=== PATIENT | female | born 1970 | race Caucasian/White ===

== ENCOUNTER 2023-08-26 17:02 | Emergency (ER) | payer OTHER ==
[~2023-08-26] VITALS: Ht 154.9 cm; Wt 68.0 kg
[2023-08-26 17:15] VITALS: O2SAT 100
[2023-08-26] MEDS ORDERED: NAPR220C61 MT (18:57)
[2023-08-26 19:25] VITALS: BP 134/78; PULSE 87; RESP 16; TEMP 98.2
== END 2023-08-26 19:28 | disposition home or self-care (01) ==
LOC: ER 17:02
DX: M25.511 Pain in right shoulder (principal); J45.909 Unspecified asthma, uncomplicated; Z98.890 Other specified postprocedural states
CPT/HCPCS: 73030; 99283

== ENCOUNTER 2023-09-14 10:27 | Emergency (ER) | payer OTHER ==
[~2023-09-14] VITALS: Ht 154.9 cm; Wt 70.0 kg
[~2023-09-14 10:27] MED LIST: NAPR220C61 MT
[2023-09-14 10:29] VITALS: O2SAT 100
[2023-09-14] MEDS ORDERED: BENZ100C86 MT (12:58)
[2023-09-14 13:30] VITALS: BP 130/87; PULSE 85; RESP 20; TEMP 98.7
== END 2023-09-14 13:35 | disposition home or self-care (01) ==
LOC: ER 10:27
DX: J06.9 Acute upper respiratory infection, unspecified (principal); J45.909 Unspecified asthma, uncomplicated; Z98.890 Other specified postprocedural states
CPT/HCPCS: 71045; 99283

== ENCOUNTER 2023-09-20 15:07 | Emergency (ER) | payer OTHER ==
[~2023-09-20] VITALS: Ht 154.9 cm; Wt 60.0 kg
[~2023-09-20 15:07] MED LIST changes: +BENZ100C86 MT
[2023-09-20 15:54] VITALS: BP 111/75; PULSE 96; RESP 18; TEMP 98.2; O2SAT 96
[2023-09-20 16:31] LABS: BASOPHILS % 0.7 % (0.0-2.0); DIFFERENTIAL COMMENT 0; EOSINOPHILS % 0.6 % (0.0-5.0); HEMATOCRIT. 39.7 % (36.0-48.0); HEMOGLOBIN. 12.7 g/dL (12.0-16.0); LYMPHOCYTES % 12.5 % (20.0-50.0); MEAN CORPUSCULAR HEMOGLOBIN 24.1 pg (28.0-32.0); MEAN CORPUSCULAR VOLUME 75.4 fL (81.0-99.0); MEAN PLATELET VOLUME 8.8 fl (7.4-10.4); MONOCYTES % 4.7 % (2.0-8.0); NEUTROPHILS % 81.5 % (40.0-76.0); PLATELET 388 x1000/uL (130-400); RED BLOOD CELL COUNT 5.27 mill/uL (4.2-5.4); RED CELL DISTRIBUTION WIDTH 14.1 % (11.6-14.6); WHITE BLOOD COUNT 12.1 x1000/uL (4.5-11.0)
[2023-09-20 16:37] LABS: CARBON DIOXIDE 27 mEq/L (21-32); CHLORIDE 106 mEq/L (98-107); SODIUM 137 mEq/L (136-145)
[2023-09-20 16:38] LABS: CALCIUM 9.9 mg/dL (8.7-10.4)
[2023-09-20 16:43] LABS: CREATININE 0.6 mg/dL (0.6-1.0); GLUCOSE 103 mg/dL (70-105); UREA NITROGEN BLOOD 17 mg/dL (9-23)
[2023-09-20 16:44] LABS: ALANINE AMINOTRANSFERASE 25 IU/L (10-49)
[2023-09-20 16:45] LABS: ALBUMIN 4.5 g/dL (3.2-4.8); ASPARTATE AMINOTRANSFERASE 21 IU/L (<34); BILIRUBIN TOTAL 0.5 mg/dL (0.1-1.0); PROTEIN TOTAL 7.4 g/dL (6.0-8.3)
[2023-09-20 16:49] LABS: HCG SCREEN NEGATIVE
[2023-09-20] MEDS ORDERED: LOPE2CAP MT (18:48)
[2023-09-20] MEDS ORDERED: ONDA4TAB11 PO (18:48)
== END 2023-09-20 19:05 | disposition home or self-care (01) ==
LOC: ER 15:07
DX: A08.39 Other viral enteritis (principal); R19.7 Diarrhea, unspecified; J45.909 Unspecified asthma, uncomplicated; Z98.890 Other specified postprocedural states
CPT/HCPCS: 36415; 80053; 83605; 84703; 85025; 93005; 99284

== ENCOUNTER 2025-03-24 12:34 | Emergency (ER) | payer OTHER ==
[~2025-03-24] VITALS: Ht 167.6 cm; Wt 68.0 kg
[~2025-03-24 12:34] MED LIST changes: +LOPE2CAP MT; +ONDA-239 PO
[2025-03-24 12:52] VITALS: TEMP 37.1; O2SAT 100
[2025-03-24] MEDS: IBUPROFEN 400MG TABLET PO ONE (13:15)
[2025-03-24] MEDS: LIDOCAINE 5% PATCH TOP SCH (13:15)
[2025-03-24] MEDS ORDERED: TOPUD MT (14:40)
[2025-03-24 14:59] VITALS: BP 121/78; PULSE 77; RESP 16; O2SAT 100
== END 2025-03-24 15:35 | disposition home or self-care (01) ==
LOC: ER 12:51
DX: R07.89 Other chest pain (principal); J45.909 Unspecified asthma, uncomplicated; Z98.890 Other specified postprocedural states; Z79.899 Other long term (current) drug therapy
CPT/HCPCS: 71101; 99283